=== PATIENT | male | born 1950 | race Caucasian/White ===

== ENCOUNTER 2017-09-05 09:27 | Day surgery (SDC) | payer OTHER ==
[~2017-09-05 09:27] MED LIST: AMLO10 PO; ATEN25 PO; GLIP5 PO; HYDCHL25 PO; LORA.5 PO; MED FOR DIABETES PO; NAPR550 PO; OXYACE5T PO; PRAV20 PO; PRED20 PO
== END 2017-09-05 22:36 | disposition home or self-care (01) ==
LOC: WOUND 09:27
DX: L89.94 Pressure ulcer of unspecified site, stage 4 (principal); J44.9 Chronic obstructive pulmonary disease, unspecified; E11.9 Type 2 diabetes mellitus without complications; M79.605 Pain in left leg; Z95.0 Presence of cardiac pacemaker; I10 Essential (primary) hypertension; Z89.512 Acquired absence of left leg below knee
CPT/HCPCS: 87070; 87075; 87077; 87186; 87205; G0463

== ENCOUNTER 2017-09-13 09:30 | Day surgery (SDC) | payer OTHER | END 2017-09-13 22:37 | disposition home or self-care (01) | LOC: WOUND 09:30 | PROC: 0HBLXZZ Excision of Left Lower Leg Skin, External Approach (ICD-10-PCS; principal; 2017-09-13) | DX: L89.94 Pressure ulcer of unspecified site, stage 4 (principal); J44.9 Chronic obstructive pulmonary disease, unspecified; E11.9 Type 2 diabetes mellitus without complications; Z95.0 Presence of cardiac pacemaker; M79.605 Pain in left leg; G47.33 Obstructive sleep apnea (adult) (pediatric); I10 Essential (primary) hypertension; E78.00 Pure hypercholesterolemia, unspecified; Z89.512 Acquired absence of left leg below knee | CPT/HCPCS: G0463 ==

== ENCOUNTER 2017-09-17 14:15 | Day surgery (SDC) | payer OTHER | END 2017-09-17 23:13 | disposition home or self-care (01) | LOC: WOUND 14:15 | DX: L89.894 Pressure ulcer of other site, stage 4 (principal); E11.9 Type 2 diabetes mellitus without complications; J44.9 Chronic obstructive pulmonary disease, unspecified; Z95.0 Presence of cardiac pacemaker; M79.605 Pain in left leg; G47.33 Obstructive sleep apnea (adult) (pediatric); I10 Essential (primary) hypertension; E78.00 Pure hypercholesterolemia, unspecified | CPT/HCPCS: G0463 ==

== ENCOUNTER → 2017-11-06 | Outpatient (CLI) | payer OTHER | END | disposition home or self-care (01) | LOC: OLS 10:14 → LAB SHORT 10:14 | DX: S81.002A Unspecified open wound, left knee, initial encounter (principal) | CPT/HCPCS: 87070; 87205 ==

== ENCOUNTER 2017-12-17 12:00 | Day surgery (SDC) | payer OTHER | END 2017-12-17 14:56 | disposition home or self-care (01) | LOC: WOUND 12:00 | PROC: 0HBLXZZ Excision of Left Lower Leg Skin, External Approach (ICD-10-PCS; principal; 2017-12-17) | DX: L89.94 Pressure ulcer of unspecified site, stage 4 (principal); E11.622 Type 2 diabetes mellitus with other skin ulcer; L97.822 Non-pressure chronic ulcer of other part of left lower leg with fat layer exposed; J44.9 Chronic obstructive pulmonary disease, unspecified; Z95.0 Presence of cardiac pacemaker; M79.605 Pain in left leg; G47.33 Obstructive sleep apnea (adult) (pediatric) | CPT/HCPCS: G0463 ==

== ENCOUNTER 2017-12-24 10:47 | Day surgery (SDC) | payer OTHER | END 2017-12-24 23:15 | disposition home or self-care (01) | LOC: WOUND 10:47 | PROC: 0HBLXZZ Excision of Left Lower Leg Skin, External Approach (ICD-10-PCS; principal; 2017-12-24) | DX: L89.894 Pressure ulcer of other site, stage 4 (principal); E11.622 Type 2 diabetes mellitus with other skin ulcer; L97.829 Non-pressure chronic ulcer of other part of left lower leg with unspecified severity; Z89.512 Acquired absence of left leg below knee ==

== ENCOUNTER 2017-12-31 13:58 | Day surgery (SDC) | payer OTHER | END 2017-12-31 15:15 | disposition home or self-care (01) | LOC: WOUND 13:58 | DX: Z48.00 Encounter for change or removal of nonsurgical wound dressing (principal); L89.94 Pressure ulcer of unspecified site, stage 4; J44.9 Chronic obstructive pulmonary disease, unspecified; E11.9 Type 2 diabetes mellitus without complications; Z95.0 Presence of cardiac pacemaker; M79.605 Pain in left leg; G47.33 Obstructive sleep apnea (adult) (pediatric) | CPT/HCPCS: G0463 ==

== ENCOUNTER 2018-01-14 15:00 | Day surgery (SDC) | payer OTHER | END 2018-01-14 16:44 | disposition home or self-care (01) | LOC: WOUND 15:00 | DX: L89.894 Pressure ulcer of other site, stage 4 (principal); Z89.512 Acquired absence of left leg below knee; E11.9 Type 2 diabetes mellitus without complications; I10 Essential (primary) hypertension; Z95.0 Presence of cardiac pacemaker; G47.33 Obstructive sleep apnea (adult) (pediatric); E78.00 Pure hypercholesterolemia, unspecified | CPT/HCPCS: G0463 ==

== ENCOUNTER 2018-01-21 07:44 | Day surgery (SDC) | payer OTHER | END 2018-01-21 10:50 | disposition home or self-care (01) | LOC: WOUND 07:44 | DX: E11.622 Type 2 diabetes mellitus with other skin ulcer (principal); L89.94 Pressure ulcer of unspecified site, stage 4; T87.89 Other complications of amputation stump; L85.8 Other specified epidermal thickening; J44.9 Chronic obstructive pulmonary disease, unspecified; Z95.0 Presence of cardiac pacemaker; M79.605 Pain in left leg; G47.33 Obstructive sleep apnea (adult) (pediatric); Z89.512 Acquired absence of left leg below knee; I10 Essential (primary) hypertension; E78.00 Pure hypercholesterolemia, unspecified ==

== ENCOUNTER 2020-06-21 09:37 | Emergency (ER) | payer OTHER ==
[~2020-06-21] VITALS: Ht 182.9 cm; Wt 90.7 kg
[~2020-06-21 09:37] MED LIST changes: +insulin SC
[2020-06-21 10:35] LABS: BASOPHILS ABSOLUTE AUTO 0.08 K/mm3 (0.00-0.23); BASOPHILS PERCENT AUTO 1 % (0-2); EOSINOPHILS ABSOLUTE AUTO 0.12 K/mm3 (0.00-0.68); EOSINOPHILS PERCENT AUTO 1 % (0-6); Hematocrit 47.2 % (37.0-53.0); Hemoglobin 16.3 g/dL (13.5-17.5); IMMATURE GRAN ABSOLUTE AUTO 0.03 K/mm3 (0.00-0.10); IMMATURE GRAN PERCENT AUTO 0 % (0-1); LYMPHOCYTES ABSOLUTE AUTO 1.59 K/mm3 (0.84-5.20); LYMPHOCYTES PERCENT AUTO 15 % (21-46); MONOCYTES ABSOLUTE AUTO 0.75 K/mm3 (0.16-1.47); MONOCYTES PERCENT AUTO 7 % (4-13); Mean Corpuscular HGB 31.4 pg (26.0-34.0); Mean Corpuscular HGB Conc 34.5 g/dL (31.5-36.5); Mean Corpuscular Volume 91 fL (80-100); NEUTROPHILS ABSOLUTE AUTO 8.25 K/mm3 (1.96-9.15); NEUTROPHILS PERCENT AUTO 76 % (41-73); Platelet Count 146 K/mm3 (150-400); RDW Coefficient Variation 12.7 % (11.7-14.2); RDW Standard Deviation 42.6 fL (35.1-46.3); Red Blood Cell Count 5.19 M/mm3 (4.30-5.90); White Blood Cell Count 10.82 K/mm3 (4.00-11.30)
[2020-06-21 10:59] LABS: Alanine Aminotransfer (ALT/SGP 28 U/L (12-78); Albumin, Blood 3.6 g/dL (3.4-5.0); Albumin/Globulin Ratio 1.2 (0.8-1.8); Alk Phos 67 U/L (50-136); Anion Gap 6 mmol/L (6-16); Aspartate Aminotrans (AST/SGOT 16 U/L (12-37); Bilirubin, Total 0.6 mg/dL (0.1-1.0); Blood Urea Nitrogen 16 mg/dL (8-24); CO2, Blood 25 mmol/L (21-32); Calcium, Blood 9.2 mg/dL (8.5-10.1); Chloride, Blood 106 mmol/L (98-108); Globulin, Blood 3.1 g/dL (2.2-4.0); Glomerular Filtration Rate >60 (60-); Glucose, Blood 256 mg/dL (70-99); Potassium, Blood 4.3 mmol/L (3.5-5.5); Sodium, Blood 137 mmol/L (136-145); Total Protein, Blood 6.7 g/dL (6.4-8.2); Troponin I <0.015 ng/mL (0.000-0.040)
[2020-06-21] MEDS ORDERED: Zithromax250 MG PO ×2 (11:13→12:09)
[2020-06-21] MEDS ORDERED: AMOCLA875 PO ×2 (11:13→12:09)
== END 2020-06-21 11:28 | disposition home or self-care (01) ==
LOC: ER 09:37
PROVIDERS: Physician Assistant
DX: J18.9 Pneumonia, unspecified organism (principal); R45.1 Restlessness and agitation; T44.7X1A Poisoning by beta-adrenoreceptor antagonists, accidental (unintentional), initial encounter; I10 Essential (primary) hypertension; G44.209 Tension-type headache, unspecified, not intractable; E11.9 Type 2 diabetes mellitus without complications; Z88.5 Allergy status to narcotic agent; Z88.8 Allergy status to other drugs, medicaments and biological substances; Z87.891 Personal history of nicotine dependence
CPT/HCPCS: 71046; 80053; 84484; 85025; 93005; 93010; 99284-25